=== PATIENT | male | born 1980 | race Caucasian/White ===

== ENCOUNTER 2016-10-15 22:21 | Emergency (ER) | payer BC ==
[~2016-10-15 22:21] MED LIST: KEFLEX500 MG PO; VICODIN 5/1 TAB 5/50 PO
== END 2016-10-16 | disposition home or self-care (01) ==
LOC: CFTX 22:21
DX: S61.011A Laceration without foreign body of right thumb without damage to nail, initial encounter (principal); Z23 Encounter for immunization; F17.210 Nicotine dependence, cigarettes, uncomplicated; W01.0XXA Fall on same level from slipping, tripping and stumbling without subsequent striking against object, initial encounter; Y92.009 Unspecified place in unspecified non-institutional (private) residence as the place of occurrence of the external cause
CPT/HCPCS: 12002; 90471; 90715; 99283